=== PATIENT | female | born 1945 | race Caucasian/White ===

== ENCOUNTER 2016-08-18 10:04 | Emergency (ER) | payer MEDICARE, OTHER ==
--- NOTE | 2016-08-18 12:02 | ER PHYSICIAN DOCUMENTATION ---
Physician Documentation [facility] Name:Kiara Ledezma Age:70 yrs Sex:Female :1945 Arrival Date:08/18/2016 Time:10:04 BedTrauma-C Private MD: Jerel Graf Disposition: 08/18/16 11:29 Discharged to Home/Self Care. Impression: Musculoskeletal Chest Pain. - Condition is Good. - Discharge Instructions: CHEST WALL STRAIN. - Medical Reconciliation form form. - Follow up: Private Physician; When: 7 - 10 days; Reason: Recheck today's complaints, Continuance of care. - Problem is new. - Symptoms are unchanged. - Notes: Rest. No gardening. Ibuprofen 400mg by mouth every 6 hours as needed for pain. Ice packs as needed. Historical: - Allergies: No known drug Allergies; - Home Meds: 1. Lisinopril Oral 2. hctz 3. statin 4. Potassium Chloride Oral 5. Atenolol Oral - PMHx: HIGH CHOLESTEROL; HYPERTENSION; IBSD; GERD; - PSHx: CHOLECYSECTOMY; - Tetanus: unknown. - Ebola Screening: : Patient negative for fever greater than or equal to 101.5 degrees Fahrenheit, and additional compatible Ebola Virus Disease symptoms. Patient denies exposure to infectious person. Patient denies travel to an Ebola-affected area in the 21 days before illness onset. No symptoms or risks identified at this time. . - Immunization history: Flu Vaccine < 1 year. - Social history: Smoking status: Patient states was never smoker of tobacco. Vital Signs: 08/18 10:10 BP 150 / 88 (auto/); tg 10:14 Pulse 75 MON; Resp 19; Pulse Ox 92% ; tg 10:14 Pulse 70; Resp 17; Temp 98.2(O); Weight 77.11 kg (R); Height 5 ft. 4 in. (162.56 cm) tg (R); Pain 2/10; 11:29 Pulse 64 MON; Resp 18; Pulse Ox 93% ; tg 11:30 BP 115 / 69 (auto/); tg 10:14 Body Mass Index 29.18 (77.11 kg, 162.56 cm) tg MDM: 10:36 Patient medically screened. cd 08/18 11:23 Order name: TROPONIN I; Complete Time: 11:27 EDMS 05/17 11:27 Interpretation: Normal. cd 08/18 10:36 Order name: 12-lead EKG; Complete Time: 10:37 cd 08/18 10:37 Order name: Cardiac Monitoring - Continuous; Complete Time: :37 cd 08/18 10:37 Order name: Pulse Ox Continuous; Complete Time: 10:37 cd Dispensed Medications: No medications were administered Signatures: Carlos Alberto Falcon RN RN tg Jerel Kenney MD MD
--- NOTE | 2016-08-18 12:02 | ER NURSING DOCUMENTATION ---
Nurse's Notes [facility] [place] Name:Kiara Ledezma Age:70 yrs Sex:Female :1945 Arrival Date:08/18/2016 Time:10:04 BedTrauma-C Private MD: Diagnosis:Musculoskeletal Chest Pain Presentation: 08/18 10:05 Presenting complaint: Patient states: Left chest wall pain and left arm pain. Both are tg tender to the touch, began 4 days ago after lifting heavy stuff. Transition of care: patient was not received from another setting of care. Notified ED Physician of patient's arrival and CC Dr. Kenney notified. 10:05 Acuity: REFUGIO 2 tg 10:05 Method Of Arrival: Private Vehicle tg Triage Assessment: 10:27 General: Appears in no apparent distress, well nourished, well groomed, Behavior is tg cooperative, pleasant. Pain: Complains of pain in left clavicle, anterior aspect of left upper chest and left bicep. Cardiovascular: Capillary refill < 3 seconds Rhythm is sinus rhythm. Respiratory: Airway is patent Respiratory effort is even, unlabored, Denies shortness of breath labored breathing. Derm: Skin is pink, warm & dry. Historical: - Allergies: No known drug Allergies; - Home Meds: 1. Lisinopril Oral 2. hctz 3. statin 4. Potassium Chloride Oral 5. Atenolol Oral - PMHx: HIGH CHOLESTEROL; HYPERTENSION; IBSD; GERD; - PSHx: CHOLECYSECTOMY; - Tetanus: unknown. - Ebola Screening: : Patient negative for fever greater than or equal to 101.5 degrees Fahrenheit, and additional compatible Ebola Virus Disease symptoms. Patient denies exposure to infectious person. Patient denies travel to an Ebola-affected area in the 21 days before illness onset. No symptoms or risks identified at this time. . - Immunization history: Flu Vaccine < 1 year. - Social history: Smoking status: Patient states was never smoker of tobacco. Screenin:00 Infectious Disease Risk Unable to Obtain. Abuse screen: Denies threats or abuse. Denies tg injuries from another. Nutritional screening: No deficits noted. Vital Signs: 10:10 BP 150 / 88 (auto/); tg 10:14 Pulse 75 MON; Resp 19; Pulse Ox 92% ; tg 10:14 Pulse 70; Resp 17; Temp 98.2(O); Weight 77.11 kg (R); Height 5 ft. 4 in. (162.56 cm) tg (R); Pain 2/10; 11:29 Pulse 64 MON; Resp 18; Pulse Ox 93% ; tg 11:30 BP 115 / 69 (auto/); tg 10:14 Body Mass Index 29.18 (77.11 kg, 162.56 cm) tg ED Course: 10:04 Patient arrived in ED. ds 10:05 Carlos Alberto Falcon, CARYN is Primary Nurse. tg 10:06 Triage completed. tg 10:36 Jerel Kenney MD is Attending Physician. cd 12:00 Valuables Remains with patient. front desk monitor on. tg Administered Medications: No medications were administered Outcome: 11:29 Discharge ordered by . cd 12:00 Discharged to home ambulatory, with significant other. tg 12:00 Condition: stable 12:00 Discharge Assessment: Patient awake, alert and oriented x 3. No cognitive and/or functional deficits noted. Patient verbalized understanding of disposition instructions. 12:00 Instructed on discharge instructions, follow up and referral plans. 12:01 Patient left the ED. tg Signatures: Carlos Alberto Falcon, CARYN RN tg Srot, Ale, Reg Reg ds Jerel Kenney MD MD cd
== END 2016-08-18 12:02 | disposition home or self-care (01) ==
LOC: ER 10:04
DX: R07.81 Pleurodynia (principal); M79.602 Pain in left arm; I10 Essential (primary) hypertension; E78.00 Pure hypercholesterolemia, unspecified; Z82.49 Family history of ischemic heart disease and other diseases of the circulatory system; Z79.899 Other long term (current) drug therapy
CPT/HCPCS: 84484; 93010; 99283

== ENCOUNTER 2016-09-27 15:34 | Emergency (ER) | payer MEDICARE, OTHER ==
[2016-09-27 16:26] LABS: HEMATOCRIT 39.6 % (36.0-48.0); HEMOGLOBIN 13.6 g/dL (12.0-16.0); MEAN CORPUS. HGB CONCENTRATION 34.5 g/dL (32.0-36.0); MEAN CORPUSCULAR HEMOGLOBIN 29.6 pg (29.0-35.0); MEAN PLATELET VOLUME 10.2 fL (7.4-10.4); RED BLOOD COUNT 4.6 X 10^6uL (4.20-6.10); RED CELL DISTRIBUTION WIDTH 13.2 % (11.5-14.5); WHITE BLOOD COUNT 8.1 X 10^3uL (3.9-10.7)
[2016-09-27 16:32] LABS: CALCIUM 9.9 mg/dL (8.4-10.2); POTASSIUM 3.1 mmol/L (3.5-5.1)
[2016-09-27] MEDS ORDERED: ONDANSETRON HCL 4 MG/2 ML VIAL ONE (16:32)
[2016-09-27] MEDS ORDERED: NORMAL SALINE 1,000 ML IV ONE (16:32)
--- NOTE | 2016-09-27 17:47 | ER PHYSICIAN DOCUMENTATION ---
Physician Documentation [facility] Name:Kiara Ledezma Age:70 yrs Sex:Female :1945 Arrival Date:09/27/2016 Time:15:34 Bed3 Private MD:Shruthi Felix ED PhysicianMekristinMoncho Disposition: 09/27/16 17:11 Discharged to Home/Self Care. Impression: Diarrhea, Dehydration. - Condition is Good. - Discharge Instructions: DIARRHEA, Unk Cause (Adult) Report Pendg. - Prescriptions for Zofran 4 mg Oral Tablet - take 1-2 tablet by ORAL route every 4-6 hours As needed; 10 tablet. Flagyl 500 mg Oral - take 1 tablet by ORAL route every 8 hours for 10 days; 40 tablet. - Medical Reconciliation form form. - Follow up: Shruthi Felix MD; When: As needed; Reason: Continuance of care. - Problem is new. - Symptoms have improved. HPI: 09/27 20:38 This 70 yrs old Female presents to ER via Private Vehicle with complaints of jm Abdominal Pain. 20:38 This 70 yrs old Female presents to ER via Private Vehicle with complaints of jm Abdominal Pain. 20:38 The patient presents with abdominal pain cramps. Onset: The symptoms/episode jm began/occurred 1 week(s) ago. 20:38 The patient presents to the emergency department with nausea, with diarrhea, with jm associated abdominal pain, cramps. Onset: The symptom(s)/episode began/occurred 1 week(s) ago. Possible causes: antibiotics. The symptoms are alleviated by nothing. Severity of symptoms: in the emergency department the symptoms are unchanged. The patient has not experienced similar symptoms in the past. Historical: - Allergies: Niaspan Extended-Release; Adhesives; - Home Meds: 1. potassium chloride 20 mEq oral TbER 1 tab once daily 2. fluticasone Propionate 3. atorvastatin 20 mg oral tab 1 tab once daily 4. omeprazole 20 mg oral cpDR 1 cap once daily 5. atenolol 25 mg oral tab 1 tab once daily 6. lisinopril-hydrochlorothiazide 20-12.5 mg oral tab 1 tab once daily 7. ibuprofen 200 mg oral tab 2 tabs every 6 hours as needed with food 8. Citracal Oral 9. Vitamin D Oral 10. melatonin 5 mg oral tab 11. aspirin 81 mg oral tab - PMHx: GERD; Hypertension; Hyperlipidemia; OBESITY; hypokalemia; - PSHx: Cholecysectomy; - Tetanus: < 10 years. - Ebola Screening: : Patient negative for fever greater than or equal to 101.5 degrees Fahrenheit, and additional compatible Ebola Virus Disease symptoms. Patient denies exposure to infectious person. Patient denies travel to an Ebola-affected area in the 21 days before illness onset. . - Immunization history: Pneumococcal vaccine is up to date, Flu Vaccine < 1 year. - Social history: Smoking status: Patient states was never smoker of tobacco. ROS: 20:38 Constitutional: Positive for fatigue, fever, malaise. jm 20:38 Cardiovascular: Negative for chest pain. 20:38 Abdomen/GI: Positive for diarrhea, abdominal cramps. 20:38 Neuro: Positive for weakness. Exam: 20:38 Constitutional: The patient appears alert, awake, comfortable, obese. jm 20:38 Cardiovascular: Rate: tachycardic, Rhythm: regular. 20:38 Respiratory: Respirations: normal, Breath sounds: are normal. 20:38 Abdomen/GI: Bowel sounds: normal, Palpation: mild abdominal tenderness, in all quadrants. 20:38 Skin: Appearance: Color: pink, no rash present. Vital Signs: 15:25 BP 139 / 77; Pulse 106; Resp 16; Temp 100.0(TE); Pulse Ox 92% on R/A; Weight 74.84 kg; lp Height 5 ft. 4 in. (162.56 cm); Pain 3/10; 16:45 BP 140 / 63; Pulse 94; Resp 16; Pulse Ox 91% on R/A; lp 17:00 BP 128 / 71; Pulse 84; Resp 16; Pulse Ox 96% on R/A; lp 17:10 BP 122 / 73; Pulse 84; Resp 16; Pulse Ox 94% on R/A; lp 15:25 Body Mass Index 28.32 (74.84 kg, 162.56 cm) lp MDM: 15:35 Patient medically screened. 20:40 Differential diagnosis: viral gastroenteritis, gastroenteritis, c-diff. Data reviewed: vital signs, nurses notes, lab test result(s), and as a result, I will discharge patient. Counseling: I had a detailed discussion with the patient and/or guardian regarding: the historical points, exam findings, and any diagnostic results supporting the discharge/admit diagnosis, lab results, the need for outpatient follow up, with the patient's primary care provider. ED course: Pt better after meds and IVF. Pt called back to ER for +C-diff results. . ED course: Given 2 tabs of flagyl, one for now and one for tomorrow AM. . 09/27 16:28 Order name: CBC WITHOUT A DIFFERENTIAL EDMN 09/27 16:47 Order name: BASIC METABOLIC PANEL EDMN 09/27 20:07 Order name: C DIFFICILE BY PCR EDMN 09/27 16:14 Order name: Iv Saline Lock; Complete Time: 16:23 09/27 16:14 Order name: Pulse Ox Continuous; Complete Time: : Dispensed Medications: 16:23 Drug: Zofran 4 mg; Route: IVP; Infused Over: 2 mins; Site: left antecubital; lp 17:31 Follow up: Response: Nausea is decreased lp 16:23 Drug: NS 0.9% 1000 ml; Route: IV; Rate: bolus; Site: left antecubital; lp 17:31 Follow up: Response: No adverse reaction; No change in condition; IV Status: Completed lp infusion; IV Intake: 1000ml 20:36 Drug: Flagyl 500 mg; Route: PO; la 20:37 Follow up: Response: No adverse reaction la 20:36 Drug: Flagyl 500 mg; {Note: flagyl given for pt to take 8 hours after first dose of la flagyl. pt states understanding. .} Route: PO; 20:37 Follow up: Response: Pharmacy closed - take home med pack; Dispensed at discharge. la Signatures: Alberta Yoder, CARYN RN Moncho Stallings MD MD jm Alexander, Linda la
--- NOTE | 2016-09-27 17:47 | ER NURSING DOCUMENTATION ---
Nurse's Notes [facility] Name:Kiara Ledezma Age:70 yrs Sex:Female :1945 Arrival Date:09/27/2016 Time:15:34 Bed3 Private MD:Shruthi Felix Diagnosis:Diarrhea;Dehydration Presentation: 09/27 15:36 Acuity: REFUGIO 3 rh 16:03 Presenting complaint: Patient states: Diarrhea and abdominal pain. Transition of care: lp Home. 16:03 Method Of Arrival: Private Vehicle lp Triage Assessment: 16:13 General: Appears in no apparent distress, Behavior is appropriate for age. Pain: lp Complains of pain in right upper quadrant and left upper quadrant. EENT: No deficits noted. Neuro: No deficits noted. Cardiovascular: Capillary refill < 3 seconds Pulses are all present. Respiratory: Airway is patent Respiratory effort is even, unlabored. GI: Abdomen is non- distended obese, Bowel sounds present X 4 quads. Abdomen is tender to palpation in right upper quadrant and left upper quadrant. : No deficits noted. : No deficits noted. Derm: No deficits noted. Musculoskeletal: No deficits noted. Historical: - Allergies: Niaspan Extended-Release; Adhesives; - Home Meds: 1. potassium chloride 20 mEq oral TbER 1 tab once daily 2. fluticasone Propionate 3. atorvastatin 20 mg oral tab 1 tab once daily 4. omeprazole 20 mg oral cpDR 1 cap once daily 5. atenolol 25 mg oral tab 1 tab once daily 6. lisinopril-hydrochlorothiazide 20-12.5 mg oral tab 1 tab once daily 7. ibuprofen 200 mg oral tab 2 tabs every 6 hours as needed with food 8. Citracal Oral 9. Vitamin D Oral 10. melatonin 5 mg oral tab 11. aspirin 81 mg oral tab - PMHx: GERD; Hypertension; Hyperlipidemia; OBESITY; hypokalemia; - PSHx: Cholecysectomy; - Tetanus: < 10 years. - Ebola Screening: : Patient negative for fever greater than or equal to 101.5 degrees Fahrenheit, and additional compatible Ebola Virus Disease symptoms. Patient denies exposure to infectious person. Patient denies travel to an Ebola-affected area in the 21 days before illness onset. . - Immunization history: Pneumococcal vaccine is up to date, Flu Vaccine < 1 year. - Social history: Smoking status: Patient states was never smoker of tobacco. Screenin:15 Infectious Disease Risk None. Abuse screen: Denies threats or abuse. Denies injuries lp from another. Nutritional screening: No deficits noted. Assessment: 16:15 See Triage Assessment done by same RN. lp 20:14 Reassessment: lab called, pts stool culture came back positive for c-diff. Dr Shad murry called pt. She will be coming back into the ED to get Flagyl tonight. Vital Signs: 15:25 BP 139 / 77; Pulse 106; Resp 16; Temp 100.0(TE); Pulse Ox 92% on R/A; Weight 74.84 kg; lp Height 5 ft. 4 in. (162.56 cm); Pain 3/10; 16:45 BP 140 / 63; Pulse 94; Resp 16; Pulse Ox 91% on R/A; lp 17:00 BP 128 / 71; Pulse 84; Resp 16; Pulse Ox 96% on R/A; lp 17:10 BP 122 / 73; Pulse 84; Resp 16; Pulse Ox 94% on R/A; lp 15:25 Body Mass Index 28.32 (74.84 kg, 162.56 cm) lp ED Course: 15:35 Patient arrived in ED. dp 15:35 Shruthi Felix MD is Private Physician. dp 15:36 Triage completed. rh 15:51 Moncho Kulkarni MD is Attending Physician. lisa 15:58 Alberta Yoder, CARYN is Primary Nurse. lp 16:10 Inserted saline lock: 20 gauge in left antecubital area and blood collected. la 16:[address] Kulkarni notified. lp 16:15 Valuables Remains with patient Patient has correct armband on for positive lp identification. Placed in gown. Bed in low position. Call light in reach. Side rails up X 1. 17:11 Shruthi Felix MD is Referral Physician. lisa Administered Medications: 16:23 Drug: Zofran 4 mg; Route: IVP; Infused Over: 2 mins; Site: left antecubital; lp 17:31 Follow up: Response: Nausea is decreased lp 16:23 Drug: NS 0.9% 1000 ml; Route: IV; Rate: bolus; Site: left antecubital; lp 17:31 Follow up: Response: No adverse reaction; No change in condition; IV Status: Completed lp infusion; IV Intake: 1000ml 20:36 Drug: Flagyl 500 mg; Route: PO; la 20:37 Follow up: Response: No adverse reaction la 20:36 Drug: Flagyl 500 mg; {Note: flagyl given for pt to take 8 hours after first dose of la flagyl. pt states understanding. .} Route: PO; 20:37 Follow up: Response: Pharmacy closed - take home med pack; Dispensed at discharge. la Intake: 17:31 IV: 1000ml; Total: 1000ml. lp Outcome: 17:11 Discharge ordered by . lisa 17:28 Discharged to home lp 17:30 Condition: good lp 17:30 Instructed on discharge instructions, follow up and referral plans. medication usage. 17:46 Patient left the ED. lp 20:38 Patient left the ED. la Signatures: Alberta Yoder, RN RN Moncho Stallings MD MD jm Alexander, Linda la Hofsess, Rachel rh [place], Denise dp
[2016-09-27] MEDS ORDERED: metroNIDAZOLE 500 MG TABLET PO ONE (20:33)
== END 2016-09-27 20:39 | disposition home or self-care (01) ==
LOC: ER 15:34
DX: E86.0 Dehydration (principal); R19.7 Diarrhea, unspecified; R10.9 Unspecified abdominal pain; R53.83 Other fatigue; R53.81 Other malaise; R53.1 Weakness; R50.9 Fever, unspecified; I10 Essential (primary) hypertension; Z79.899 Other long term (current) drug therapy; Z79.82 Long term (current) use of aspirin
CPT/HCPCS: 80048; 85027; 87493; 96361; 96374; 99283; 99284; J2405; J7030